=== PATIENT | female | born 1990 | race Caucasian/White ===

== ENCOUNTER 2019-05-27 17:25 | Observation (INO) | payer BC ==
[~2019-05-27] VITALS: Ht 175.3 cm; Wt 79.4 kg
--- OUTSIDE RECORDS SUMMARY | 2019-05-27 17:27 | XMS REPORT | Encounter Summary ---
Author Organization Unknown Address [address] [place] [id number] Phone [phone] Care Team Providers Care Assistant Director Of Security Name Role Phone Dr. Lee Hsieh 3 [phone] Reason for Visit tobacco use; other - see typed reason; anxiety Instructions 1. Nicotine dependence stopping smokeless tobacco use: care instructions stopping smoking: care instructions learning about electronic cigarettes Chantix Starting Month Box 0.5 mg (11)-1 mg (42) tablets in dose pack Chantix Continuing Month Box 1 mg tablet 2. Body mass index 25-29 - overweight learning about healthy weight 3. Immunization Gardasil 9 (PF) 0.5 mL intramuscular syringe Discussion Note: None recorded. Plan of Care Reminders Provider Appointments None recorded. Lab None recorded. Referral None recorded. Procedures None recorded. Surgeries None recorded. Imaging None recorded. Medications Name Start Date Chantix Continuing Month Box 1 mg tablet Take 1 tablet twice a day by oral route. Chantix Starting Month Box 0.5 mg (11)-1 mg (42) tablets in dose pack Take 1 startr pk by oral route. ethynodiol diacetate-ethinyl estradiol 1 mg-35 mcg tablet QD ibuprofen 200 mg tablet Take 2 tablets 3 times a day by oral route. spironolactone 100 mg tablet Take 1 tablet twice a day by oral route. Medications Administered None recorded. Vitals Height Weight BMI Blood Pressure 5 ft 7.6 in 185 lbs 28.5 kg/m2 134/86 mm[Hg] Lab Results None recorded. Allergies Code Code System Name Reaction Severity Status Onset NKDA Problems Name Status Onset Date Source Polycystic Ovaries Active 05/27/2018 Gastroesophageal Reflux Disease Active External Atypical Chest Pain Active External Procedures Date Name Performed by 09/07/2012 Gastrointestinal Surgery Information not available Vaccine List Vaccine Type HPV9 04/15/20190.5 mL Tdap 09/07/2015 Social History Tobacco Smoking Status Heavy Tobacco Smoker (1/2 PPD) Past Encounters 04/15/2019 Nicotine Dependence; Body Mass Index 25-29 - Overweight; Immunization Lee AJelena Suarez MD: [id number] [place] [address], Ph. History of Present Illness Note:Pt would like to quit smoking.<div>Smoking 1/2 to 1 ppd since 15 years ago. </div><div>Hx of anxiety, smoking helps to relax.</div><div>Denies depression, suicidal/homicidal thoughts.</div><div>Denies hx of seizures.</div> Review of Systems Comprehensive General Adult ROS Reported By: Patient Cardiovascular: Cardiovascular: no chest pain, no palpitations, no lightheadedness Respiratory: Respiratory: no cough, no wheezing, no shortness of breath Gastrointestinal: Gastrointestinal: no abdominal pain, no nausea, no vomiting, no constipation, no diarrhea Musculoskeletal: Musculoskeletal: no muscle aches, no swelling in the extremities Neurologic: Neurologic: no loss of consciousness, no headaches Psychiatric: Psych: no depression, no alcohol abuse, no anxiety, no suicidal thoughts Physical Exam General Adult Exam (male) Reported By: Patient Constitutional: General Appearance: healthy-appearing, overweight. Level of Distress: NAD. Ambulation: ambulating normally Psychiatric: Insight: good judgement. Mental Status: active and alert, normal mood, normal affect. Orientation: to time, to place, to person. Memory: recent memory normal, remote memory normal Eyes: Lids and Conjunctivae: non-injected, no discharge Neck: Neck: supple, trachea midline. Thyroid: no enlargement, non-tender Lungs: Auscultation: breath sounds normal Cardiovascular: Heart Auscultation: RRR, normal S1, normal S2, no murmurs. Neck vessels: no carotid bruits Abdomen: Inspection and Palpation: soft, non-distended, no tenderness, no guarding Neurologic: Gait and Station: normal gait
--- OUTSIDE RECORDS SUMMARY | 2019-05-27 17:27 | XMS REPORT ---
Author Author [facility] Address Unknown Phone Unavailable Care Team Providers Care Manager Electrical Name Role Phone Unavailable Unavailable Payers Payer Name Policy Type Policy Number Effective Date Expiration Date Problems This patient has no known problems. Allergies, Adverse Reactions, Alerts Allergy Name Allergy Type Status Severity Reaction(s) Onset Date Inactive Date Treating Clinician Comments No Known Allergies DA Active U 2013-05-01 00:00:00 Medications This patient has no known medications.
[2019-05-27] MEDS ORDERED: ONDANSETRON HCL INJ 2MG/ML 2ML 2 MG/ML VIAL IV STA (17:38)
[2019-05-27] MEDS ORDERED: SODIUM CHLORIDE 0.9% 1000ML 1,000 ML IV STA (17:38)
[2019-05-27] MEDS ORDERED: HYDROCODONE/APAP 7.5MG-325MG 1 EA TAB PO ONE (18:00)
[2019-05-27] MEDS ORDERED: APIXABAN 5 MG TABLET PO ONE (18:00)
[2019-05-27 19:04] LABS: BASOPHILS # (AUTO) 0.1 (0.0-0.1); BASOPHILS % 0.5 % (0.0-1.0); EOSINOPHILS # (AUTO) 0.1 (0.0-0.4); EOSINOPHILS % 1.2 % (0.0-6.0); HEMATOCRIT 42.8 % (34.2-44.1); HEMOGLOBIN 14.6 g/dL (12.0-16.0); LYMPHOCYTES # (AUTO) 3.2 (1.0-3.2); LYMPHOCYTES % 26.6 % (18.0-39.1); MEAN CORPUSCULAR HEMOGLOBIN 30.9 pg (28-32); MEAN CORPUSCULAR HGB CONC 34.1 g/dL (31-35); MEAN CORPUSCULAR VOLUME 90.5 fL (81-99); MONOCYTES # (AUTO) 0.5 (0.2-0.8); MONOCYTES % 3.8 % (4.4-11.3); NEUTROPHILS # (AUTO) 8.2 (2.1-6.9); NEUTROPHILS % 67.5 % (38.7-80.0); PLATELET COUNT 341 x10e3/uL (140-360); RED BLOOD COUNT 4.73 x10e6/uL (3.6-5.1)
[2019-05-27 19:10] LABS: INR 0.82; PROTHROMBIN TIME 11.8 seconds (11.9-14.5)
[2019-05-27 19:11] LABS: PARTIAL THROMBOPLASTIN TIME 23.6 seconds (23.8-35.5)
[2019-05-27 19:26] LABS: ALANINE AMINOTRANSFERASE 11 IU/L (0-55); ALBUMIN 3.3 g/dL (3.5-5.0); ALBUMIN/GLOBULIN RATIO 1.1 (0.8-2.0); ALKALINE PHOSPHATASE 57 IU/L (40-150); ANION GAP 11.8 mmol/L (8-16); BLOOD UREA NITROGEN 12 mg/dL (7-26); BUN/CREATININE RATIO 14 (6-25); CALCIUM 8.6 mg/dL (8.4-10.2); CARBON DIOXIDE 26 mmol/L (22-29); CHLORIDE 104 mmol/L (98-107); CREATINE KINASE 56 IU/L (29-168); CREATININE, SERUM 0.87 mg/dL (0.57-1.11); EST GLOMERULAR FILTRATION RATE > 60 ML/MIN (60-); GLUCOSE 89 mg/dL (74-118); POTASSIUM 3.8 mmol/L (3.5-5.1); SODIUM 138 mmol/L (136-145)
[2019-05-27 19:40] LABS: CLARITY,URINE SL CLOUDY (CLEAR); COLOR,URINE YELLOW (YELLOW)
[2019-05-27 19:41] LABS: BILIRUBIN,URINE NEGATIVE (NEGATIVE); KETONES,URINE NEGATIVE (NEGATIVE); LEUKOCYTE ESTERASE ,URINE NEGATIVE (NEGATIVE); NITRITE,URINE NEGATIVE (NEGATIVE); PREGNANCY TEST, URINE NEGATIVE (NEGATIVE); PROTEIN,URINE DIPSTICK NEGATIVE (NEGATIVE); URINE UROBILINOGEN 0.2 mg/dL (0.2 - 1)
[2019-05-27 19:52] LABS: BACTERIA,URINE MODERATE /HPF; EPITHELIAL CELLS,URINE MODERATE /LPF
--- NOTE | 2019-05-27 20:59 | Diagnostic Imaging Report ---
EXAMINATION: CT scan of the chest with contrast. TECHNIQUE: Helical CT images of the chest were performed from the lung apices to the level of the adrenal glands after the intravenous administration of 100 cc of Omnipaque 300. Coronal and sagittal reformatted images were obtained.Dose modulation, iterative reconstruction, and/or weight based adjustment of the mA/kV was utilized to reduce the radiation dose to as low as reasonably achievable. COMPARISON: None. CLINICAL HISTORY:Deep DISCUSSION: LINES/TUBES: None. LUNGS AND AIRWAYS: Pulmonary artery and extending distally PLEURA: No pneumothorax or pleural effusions. HEART AND MEDIASTINUM: The thyroid gland is normal. The heart and pericardium are within normal limits. LYMPH NODES: There is no mediastinal, hilar or axillary lymphadenopathy. ABDOMEN: Post surgical change to the stomach. BONES AND SOFT TISSUES: No acute bony abnormalities. IMPRESSION: Right lower lobar pulmonary emboli Signed by: Dr. Benny Murray M.D. on 05/27/2019 8:56 PM
[2019-05-27] MEDS ORDERED: SODIUM CHLORIDE FLUSH 10 ML SYR INJ PRN (21:15)
[2019-05-27] MEDS ORDERED: ONDANSETRON HCL INJ 2MG/ML 2ML 2 MG/ML VIAL IV PRN (21:15)
[2019-05-27] MEDS ORDERED: CHANTIX1 EACH PO (21:53)
[2019-05-27] MEDS ORDERED: SPIRONOLACTONE100 MG PO (21:53)
[2019-05-27 22:00] VITALS: BP 128/79
--- NOTE | 2019-05-27 22:00 | NUR ---
received pt from ER to room 286, AAOx3, no c/o pain/discomfort, no resp distress, ambulates with scooter, tele #4 with pt and running SR, bed in lowest and locked position and call light in reach
[2019-05-28 00:59] VITALS: BP 128/79
[2019-05-28 01:04] VITALS: BP 128/79
[2019-05-28] MEDS ORDERED: SODIUM CHLORIDE 0.9% 50ML 50 ML ONE (01:17)
[2019-05-28] MEDS ORDERED: IOPAMIDOL 370 MG/ML 200 ML INFUS..BTL INJ ONE (01:17)
[2019-05-28 04:00] VITALS: BP 105/44
[2019-05-28 06:10] LABS: BASOPHILS # (AUTO) 0.1 (0.0-0.1); BASOPHILS % 0.9 % (0.0-1.0); EOSINOPHILS # (AUTO) 0.3 (0.0-0.4); EOSINOPHILS % 3.5 % (0.0-6.0); HEMATOCRIT 36.2 % (34.2-44.1); HEMOGLOBIN 11.9 g/dL (12.0-16.0); LYMPHOCYTES # (AUTO) 3.9 (1.0-3.2); LYMPHOCYTES % 43.5 % (18.0-39.1); MEAN CORPUSCULAR HEMOGLOBIN 30.8 pg (28-32); MEAN CORPUSCULAR HGB CONC 32.9 g/dL (31-35); MEAN CORPUSCULAR VOLUME 93.8 fL (81-99); MONOCYTES # (AUTO) 0.5 (0.2-0.8); NEUTROPHILS # (AUTO) 4.1 (2.1-6.9); NEUTROPHILS % 45.9 % (38.7-80.0); PLATELET COUNT 299 x10e3/uL (140-360); RED BLOOD COUNT 3.86 x10e6/uL (3.6-5.1); RED CELL DISTRIBUTION WIDTH 12.2 % (11.7-14.4)
[2019-05-28 06:27] LABS: ALANINE AMINOTRANSFERASE 9 IU/L (0-55); ALBUMIN 3.1 g/dL (3.5-5.0); ALBUMIN/GLOBULIN RATIO 1.1 (0.8-2.0); ALKALINE PHOSPHATASE 51 IU/L (40-150); ANION GAP 10.7 mmol/L (8-16); BLOOD UREA NITROGEN 12 mg/dL (7-26); BUN/CREATININE RATIO 14 (6-25); CALCIUM 8.8 mg/dL (8.4-10.2); CARBON DIOXIDE 27 mmol/L (22-29); CHLORIDE 105 mmol/L (98-107); CREATININE, SERUM 0.84 mg/dL (0.57-1.11); EST GLOMERULAR FILTRATION RATE > 60 ML/MIN (60-); GLUCOSE 89 mg/dL (74-118); POTASSIUM 3.7 mmol/L (3.5-5.1); SODIUM 139 mmol/L (136-145)
[2019-05-28] MEDS ORDERED: HYDROCODONE/APAP 5MG-325MG TAB PO PRN (06:45)
--- NOTE | 2019-05-28 06:45 | NUR ---
rounded with fisher swordfish nurse, patient aware of change and in no distress. call garcia within reach and bed in lowest position.
[2019-05-28 06:46] LABS: CREATINE KINASE MB 0.5 ng/mL (0-5.0)
[2019-05-28] MEDS ORDERED: ACETAMINOPHEN 325 MG TAB PO PRN (08:15)
[2019-05-28 08:27] VITALS: BP 112/76
[2019-05-28 08:30] VITALS: BP 112/76
[2019-05-28] MEDS ORDERED: NICOTINE 21 MG/EA PATCH TOP SCH (09:00)
[2019-05-28] MEDS ORDERED: SPIRONOLACTONE 25 MG TAB PO SCH (09:00)
[2019-05-28] MEDS ORDERED: APIXABAN 5 MG TABLET PO SCH (09:00)
[2019-05-28 11:37] VITALS: BP 105/69
[2019-05-28] MEDS ORDERED: CYCLOBENZAPRINE HCL 10 MG TAB PO PRN (13:30)
[2019-05-28] MEDS ORDERED: CYCLOBENZAPRINE5 MG PO (13:55)
[2019-05-28] MEDS ORDERED: eliquis PO ×2 (13:56→13:57)
[2019-05-28] MEDS ORDERED: TYLENOL WITH C1 EACH PO (13:57)
[2019-05-28 14:05] LABS: CREATINE KINASE 62 IU/L (29-168)
--- NOTE | 2019-05-28 15:15 | NUR ---
patient alert and oriented. discharge instructions given at this time, patient verbalized understanding. IV discontinued, catheter in tact and pressure dressing applied. patient to be wheeled out to personal auto for family to drive home.
--- NOTE | 2019-05-28 16:04 | History and Physical ---
CHIEF COMPLAINT: Right calf pain. HISTORY OF PRESENT ILLNESS: This is a 28-year-old female with known history of PCOS, currently on spironolactone and also oral contraceptives, recently broke her right foot after having a mechanical fall and was seen by Podiatry as an outpatient, currently wearing a boot. Started complaining of right calf pain ongoing for the last several days and was told to come to the ER by her clinical phlebotomist for further evaluation and management. While here imaging studies was consistent with a right lower extremity DVT and a CT chest with IV contrast, a PE protocol shows right lower lobe pulmonary emboli. The patient denies any chest pain, any pleuritic pain. No shortness of breath. Does endorse some right calf pain. The patient reports that she is pretty active during her job and she walks pretty frequently. Of note, the last 2 weeks, she has been sitting behind a desk and has not been as active as usual. The patient takes oral contraceptives for underlying PCOS as well. The patient denies any genetic disorders that will cause any kind of prone to clots or any family history related to this. The patient seen and evaluated at bedside on the medical floor. Currently, she is doing well with no other complaints. She has been started on Eliquis since last night. REVIEW OF SYSTEMS: Right calf pain. Pertinent negative: Denies any chest pain, palpitation, nausea, vomiting, diarrhea, dysuria, hematuria, frequency, urgency, lightheadedness, dizziness, abdominal pain, headaches, shortness of breath, cough, congestion, fever, or any other complaints. The rest of 14-point review of systems are reviewed with the patient and are negative. ALLERGIES: NO KNOWN DRUG ALLERGIES. HOME MEDICATIONS: Aldactone 100 mg p.o. b.i.d., and Chantix. PAST MEDICAL HISTORY: She has PCOS, smoking history. She takes oral contraceptives. FAMILY HISTORY: Hypertension, diabetes. SOCIAL HISTORY: No drugs. No alcohol. She does smoke. She is currently on Chantix to quit smoking. SURGICAL HISTORY: Reports none. PHYSICAL EXAMINATION: VITAL SIGNS: Temperature is 95.7, pulse 82, respiratory rate is 18, blood pressure 112/76, pulse ox 100% on room air. GENERAL: No acute distress, alert, oriented x3. Cooperative on examination. HEENT: Head normocephalic and atraumatic. Eyes; pupils are equal, round, and reactive to light bilaterally. Extraocular movements intact bilaterally. Neck was supple. Good range of motion. Throat; no evidence of erythema or exudates in the posterior pharynx. Has poor dentition. PULMONARY: Clear to auscultation bilaterally. No wheezing, no rales, no rhonchi, no crackles appreciated. CARDIOVASCULAR: Positive S1, S2. No murmurs, rubs, or gallops appreciated. ABDOMEN: Soft, nondistended, and nontender to palpation. Bowel sounds present. MUSCULOSKELETAL: Strength is 5/5 throughout. No evidence of any muscle deficits on examination. No weakness appreciated. NEUROLOGIC: Cranial nerve II through XII grossly intact. No evidence of any neurological deficits on exam. SKIN: Intact. Warm to touch. Good cap refill. PSYCHIATRIC: Normal affect and mood. EXTREMITIES: Right lower calf seems to be more swollen, but there is no evidence of any erythema on examination. LABORATORY FINDINGS: Show white count is 8.9, hemoglobin 11.9, hematocrit 36, platelets of 299. Coagulation; PT 11, INR 0.82, PTT 23. Several clotting factors have been ordered. Chemistry; sodium 139, potassium 3.7, chloride 105, bicarb 27, anion gap of 10, BUN is 12, creatinine 0.84, glucose 89, calcium is 8.8, total bilirubin was 0.4, AST 11, ALT 9, alkaline phosphatase 51. Troponins were all negative. Total protein 5.9, albumin 3.1. Urinalysis found to be negative. Microbiology none. CT chest with IV contrast consistent with right lower lobe pulmonary emboli. IMPRESSION: 1. Acute onset deep venous thrombosis, right lower calf as well as acute pulmonary emboli. 2. Acute right foot fracture of the base of the 5th metatarsal according to the patient, currently with a surgical boot. 3. History of polycystic ovary syndrome. PLAN: At this time, the patient has been started on Eliquis 10 mg twice daily. We will continue with that. Follow up on the serologies for the Factor V Leiden, antiphospholipid syndrome factors, but also get a consult with Hematology as well as she does need full workup on that considering her age. She does take oral contraceptives at home, which could be playing a role, but unsure at this time. We will continue with the Eliquis 10 mg twice daily, then for seven days, then change to Eliquis 5 mg twice daily. I will resume all her home medications for now. Consultants; there was Cardiology involved as well as Hematology. Once the patient has been evaluated by both consultants and deemed to be cleared, we will discharge the patient home. She does have some pain. I did order [place] p.r.n. MD JAZ Bryson/HIMANSHU /[id number]
--- NOTE | 2019-05-28 16:44 | Discharge Summary ---
FINAL DISCHARGE DIAGNOSES: 1. Right lower extremity deep vein thrombosis. 2. Acute pulmonary embolism. 3. History of polycystic ovary syndrome. 4. Right foot fracture, currently with a boot. CONSULTANTS: 1. Hematology. 2. Cardiology. VITAL SIGNS: Temperature is 97.3, pulse 73, respiratory rate is 19, blood pressure 105/69, and pulse ox 99% on room air. LABORATORY FINDINGS: Show white count 8.9, hemoglobin 11.9, hematocrit 36, platelets of 299. Coagulation; PT 11, INR 0.82, PTT 23. D-dimer 255. Several serologies, factor VII, protein S and anticoagulants are all pending. Urinalysis negative. MICROBIOLOGY: Urine cultures are negative. IMAGING STUDIES: CT chest with IV contrast shows right lower lobe pulmonary emboli. HOSPITAL COURSE: A 28-year-old female with right foot fracture, currently on the surgical boot, was sent in by her bell maker due to complaints of right lower extremity pain and swelling. Venous Doppler was consistent with acute DVT. CT chest with IV contrast also showed acute pulmonary embolism. The patient was admitted for further evaluation and management. Cardiology was consulted to further assist in this case. The patient was started on oral Eliquis 10 mg twice daily for 7 total days as a loading dose and 5 mg b.i.d. thereafter. While here, the patient was doing well. Did complain of right calf muscle spasms, and which Flexeril was given with much improvement. The patient was educated about her Eliquis, to continue Eliquis 10 mg twice daily for the loading, and then 5 mg p.o. b.i.d. thereafter. She verbalized understanding and agrees to plan of care. She also has an appointment to see Dr. Adorno, Hematology on Thursday for further management and care. There is also several serologies ordered that are going to be pending, because our send outs and that she will need to follow up with Dr. Adorno, Hematology in relation to these results. She verbalized understanding and agrees to plan of care. On discharge, the patient was doing well back to normal baseline. The patient was cleared for discharge by Cardiology. No further workup was needed. On the day of discharge, vital signs were stable, labs were reviewed and stable. The patient was seen, evaluated, and examined thoroughly on the day of discharge. No other complaints. The patient verbalized understanding and agrees to plan of care to follow up accordingly as an outpatient with the primary care physician in 1 week and the alpaca farmer on Thursday 1:30 p.m. for further management and care and online marketing analyst in 2 weeks' time. MEDICATIONS: See med reconciliation form. DISPOSITION: Home. CONDITION: Stable. DIET: Heart healthy. In the event of any worsening symptoms, the patient was advised to come back to the ED for further evaluation. Discharge summary took greater than 35 minutes. MD JAZ Bryson/MODL /[id number]
--- NOTE | 2019-05-28 19:51 | Consultation ---
DATE OF CONSULTATION: Cardiac Consultation REASON FOR CONSULTATION: Pulmonary embolism, deep venous thrombosis of the right tibial veins. HISTORY OF PRESENT ILLNESS: A 28-year-old, very active, very healthy. The patient does have history of polycystic ovary. She is on Aldactone 100 mg twice a day and Kelnor. She had recently fracture of her metatarsal bone. She was seen by Dr. Shannon. She is having a boots. Her activities are limited. The patient started having worsening pain and swelling of her right lower extremity. For that reason, she came to the emergency room. Venous Doppler showed the presence of venous thrombosis of the right tibial vein. She was a little bit tachycardic. So, she had a CT scan, which showed the presence of right lower lobe pulmonary embolism. The patient given Eliquis 10 mg and admitted for further management. Cardiac consultation also is obtained. I visited with the patient was feeling better today. She denied having any shortness of breath. She denied having any angina. She said she is very active, but with that trauma and that foot problem, she is having mood and her activities are limited. REVIEW OF SYSTEMS: GENERAL: No fever. No chills. HEENT: No vision problem. No hearing problem. PULMONARY: No cough. No hemoptysis. CARDIAC: No angina. No shortness of breath. No pleuritic chest pain. No pericarditic chest pain. GI: No hematemesis. No melena. : No hematuria. No dysuria. MUSCULOSKELETAL: No aches. No pain. EXTREMITIES: Lower extremity, localized pain of the right lower extremity. SOCIAL HISTORY: She is a smoker. She is single. She is not alcohol drinker. HOME MEDICATIONS: Include spironolactone 100 mg twice a day and Kelnor. ALLERGIES: NONE. PAST MEDICAL HISTORY: Polycystic ovaries, otherwise healthy. FAMILY HISTORY: Father with coronary artery disease in his 60s. Mother is healthy. PHYSICAL EXAMINATION: VITAL SIGNS: Height of 5 feet 9 inches, weight of 175 pounds, blood pressure 110/70, heart rate today at 18. In ER on EKG, her heart rate of 100. She is afebrile. Respiratory rate of 16. HEENT: Pupils are equal and reactive. NECK: No elevation of jugular venous pulsation. CHEST: Clear to auscultation and percussion. HEART: PMI 5th left intercostal space. Normal first and second heart sound. ABDOMEN: Soft with good bowel sounds. EXTREMITIES: No cyanosis. No clubbing. No edema. No swelling of the right foot. The patient is in bed since yesterday. LABORATORY DATA: BUN 12, creatinine of 0.84, sodium of 139, and potassium 3.7. White blood cell count of 9000, hemoglobin of 11.9, hematocrit 36%, and platelet count of 299,000. Right lower extremity ultrasound showed the presence of right tibial venous thrombosis. CT scan by report showing presence of right pulmonary embolism. IMPRESSION AND PLAN: 1. Pulmonary embolism and thrombosis of the right tibial vein. 2. Polycystic ovaries disease. RECOMMENDATIONS: Eliquis 10 mg b.i.d. as done. The patient will be followed by Dr. Adorno as an outpatient. She is hemodynamically stable. Her echocardiogram to be done or if it is done, I will review it just to be sure there is no strain pattern. Care discussed and explained. MD GENESIS Keith/HIMANSHU /[id number]
--- NOTE | 2019-05-30 02:55 | Consultation ---
DATE OF CONSULTATION: 05/28/2019 REQUESTING PHYSICIAN: Dillon Zamudio M.D. CONSULTING PHYSICIAN: Clark Norman MD, Hematology/Oncology Service. REASON FOR CONSULTATION: Evaluation and management of the patient with DVT and pulmonary embolism. HISTORY OF PRESENTING ILLNESS: A 28-year-old female with no significant past medical history other than polycystic ovarian disease, presented with right calf pain. She underwent workup including Doppler revealing an acute deep vein thrombosis in the right lower calf. CT angiogram was also performed revealing pulmonary embolism. She has been started on anticoagulation and Hematology-Oncology has been consulted to assist with the management. Apparently, the patient was discharged home without clinically getting evaluated. However, clinical data was reviewed and discussed with primary attending. The patient has been advised by primary attending to follow up in the outpatient setting. Thank you for the consult. I will continue to be available. Please call with questions. Clark Norman MD IJ/MODL /[id number]
== END 2019-05-28 15:18 | disposition home or self-care (01) ==
LOC: ER 17:25 → ERHOLD 21:15 → INTOOBSV 21:15 → MED/SURG3 21:59
PROVIDERS: ADMIT Internal Medicine; ATTEND Internal Medicine
DX: I26.99 Other pulmonary embolism without acute cor pulmonale (principal); I82.431 Acute embolism and thrombosis of right popliteal vein; Z98.84 Bariatric surgery status; F17.210 Nicotine dependence, cigarettes, uncomplicated; Z79.3 Long term (current) use of hormonal contraceptives; Z83.3 Family history of diabetes mellitus; Z82.49 Family history of ischemic heart disease and other diseases of the circulatory system; S92.351A Displaced fracture of fifth metatarsal bone, right foot, initial encounter for closed fracture; E28.2 Polycystic ovarian syndrome
CPT/HCPCS: 36415 ×2; 71260; 80053 ×2; 81001; 81025; 82550 ×2; 82553 ×2; 84484 ×2; 85025 ×2; 85230; 85305; 85306 ×2; 85379; 85597; 85610; 85613; 85730 ×2; 87086; 93005; 93306; 99284; G0378 ×2; J2405; J7030; Q9967

== ENCOUNTER → 2019-05-27 | Outpatient (CLI) | payer BC ==
[~2019-05-27] MED LIST: CHANTIX1 EACH PO; CYCLOBENZAPRINE5 MG PO; SPIRONOLACTONE100 MG PO; TYLENOL WITH C1 EACH PO; eliquis PO
== END ==
LOC: RAD 16:09
PROVIDERS: ATTEND Podiatrist Foot Surgery
DX: M79.604 Pain in right leg (principal); I82.441 Acute embolism and thrombosis of right tibial vein; I87.2 Venous insufficiency (chronic) (peripheral)
CPT/HCPCS: 93971

== ENCOUNTER 2020-08-15 10:02 | Emergency (ER) | payer SELFPAY ==
[~2020-08-15] VITALS: Ht 170.2 cm; Wt 79.4 kg
[2020-08-15] MEDS ORDERED: SODIUM CHLORIDE 0.9% 1000ML 1,000 ML IV STA (10:11)
[2020-08-15] MEDS ORDERED: ONDANSETRON HCL INJ 2MG/ML 2ML 2 MG/ML VIAL IV PRN (10:15)
[2020-08-15] MEDS ORDERED: FENTANYL CITRATE/PF 100MCG/2 ML INJ IV PRN (10:15)
[2020-08-15 11:00] LABS: BASOPHILS # (AUTO) 0.1 (0.0-0.1); BASOPHILS % 0.7 % (0.0-1.0); EOSINOPHILS # (AUTO) 0.1 (0.0-0.4); EOSINOPHILS % 1.6 % (0.0-6.0); HEMATOCRIT 42.2 % (34.2-44.1); HEMOGLOBIN 13.9 g/dL (12.0-16.0); LYMPHOCYTES # (AUTO) 2.7 (1.0-3.2); MEAN CORPUSCULAR HEMOGLOBIN 29.8 pg (28-32); MEAN CORPUSCULAR HGB CONC 32.9 g/dL (31-35); MEAN CORPUSCULAR VOLUME 90.4 fL (81-99); MONOCYTES # (AUTO) 0.5 (0.2-0.8); NEUTROPHILS # (AUTO) 5.2 (2.1-6.9); NEUTROPHILS % 60.4 % (38.7-80.0); PLATELET COUNT 347 x10e3/uL (140-360); RED BLOOD COUNT 4.67 x10e6/uL (3.6-5.1); RED CELL DISTRIBUTION WIDTH 12.8 % (11.7-14.4)
[2020-08-15 11:19] LABS: ALANINE AMINOTRANSFERASE 41 IU/L (0-55); ALBUMIN 4.2 g/dL (3.5-5.0); ALBUMIN/GLOBULIN RATIO 1.3 (0.8-2.0); ALKALINE PHOSPHATASE 82 IU/L (40-150); ANION GAP 12.3 mmol/L (8-16); BLOOD UREA NITROGEN 8 mg/dL (7-26); BUN/CREATININE RATIO 10 (6-25); CALCIUM 8.7 mg/dL (8.4-10.2); CARBON DIOXIDE 27 mmol/L (22-29); CHLORIDE 105 mmol/L (98-107); CREATININE, SERUM 0.79 mg/dL (0.57-1.11); EST GLOMERULAR FILTRATION RATE > 60 ML/MIN (60-); GLUCOSE 90 mg/dL (74-118); LIPASE 14 U/L (8-78); POTASSIUM 4.3 mmol/L (3.5-5.1); SODIUM 140 mmol/L (136-145)
[2020-08-15] MEDS ORDERED: IOPAMIDOL 370 MG/ML 200 ML INFUS..BTL INJ ONE (11:59)
[2020-08-15] MEDS ORDERED: SODIUM CHLORIDE 0.9% 50ML 50 ML ONE (11:59)
[2020-08-15 13:21] LABS: BILIRUBIN,URINE NEGATIVE (NEGATIVE); CLARITY,URINE SL CLOUDY (CLEAR); COLOR,URINE YELLOW (YELLOW); KETONES,URINE NEGATIVE (NEGATIVE); LEUKOCYTE ESTERASE ,URINE NEGATIVE (NEGATIVE); NITRITE,URINE NEGATIVE (NEGATIVE); PROTEIN,URINE DIPSTICK NEGATIVE (NEGATIVE); URINE UROBILINOGEN 0.2 mg/dL (0.2 - 1)
[2020-08-15 13:25] LABS: EPITHELIAL CELLS,URINE FEW /LPF; RBC,URINE 0-5 /HPF (0-5); WBC,URINE (MAN) 0-5 /HPF (0-5)
[2020-08-15] MEDS ORDERED: ZOFRAN4 MG PO (13:49)
== END 2020-08-15 14:59 | disposition home or self-care (01) ==
LOC: ER 10:52
DX: R10.31 Right lower quadrant pain (principal); R11.2 Nausea with vomiting, unspecified; R19.7 Diarrhea, unspecified; Z86.718 Personal history of other venous thrombosis and embolism; E28.2 Polycystic ovarian syndrome; F17.210 Nicotine dependence, cigarettes, uncomplicated
CPT/HCPCS: 36415; 74177; 80053; 81001; 83690; 84702; 85025; 99284; J2405; J3010; J7030; Q9967